=== PATIENT | male | born 1950 | race Caucasian/White ===

== ENCOUNTER → 2020-07-27 08:36 | Outpatient (BNVA) | payer BC, SELFPAY | PROVIDERS: PCP Internal Medicine; Referring Provider Internal Medicine; Visit Provider Internal Medicine Cardiovascular Disease | DX: I25.10 Atherosclerotic heart disease of native coronary artery without angina pectoris (principal); R06.02 Shortness of breath | CPT/HCPCS: 93005 ==

== ENCOUNTER → 2020-07-29 09:18 | Outpatient (REF) | payer MEDICARE, SELFPAY ==
--- NOTE | 2020-07-29 09:52 | CA_ITS ---
Transthoracic Echocardiogram Patient (Last, First, Middle): Justo Sue, Gender: Male Date of : 1950 Age: 69 Procedure Date: 07/29/2020 Procedure Type: Transthoracic Echocardiogram Location: OP Height: 180.34 cm Weight: 81.65 kg BSA: 2.02 m2 Heart Rate: bpm BP: 123 / 80 mmHg Clay Transporter: Referring MD: Meliton Durham MD Symptoms: R06.02 - Shortness of breath Study Quality: Technically Difficult ECG Rhythm: Sinus Conclusions: - Limited views-No parasternal or short-axis views. - Even with contrast use, difficult to assess wall motion. Grossly no major abnormality on available images. Suspect LVEF >55%. - There is mildly decreased right ventricular systolic function. - No obvious valvular pathology seen on this study. Findings Procedure Information The patient receives contrast. Left Ventricle Normal left ventricular cavity size. The left ventricular systolic function is normal. E/E prime ratio is <8, consistent with normal filling pressures. Evidence suggests grade I (mild) diastolic dysfunction. No parasternal or short-axis views. Even with contrast use, difficult to assess wall motion. Grossly no major abnormality on available images. Suspect LVEF >55%. Right Ventricle Normal right ventricular cavity size. There is mildly decreased right ventricular systolic function. (TAPSE 1.5cm) Atria Both atria are normal in size. Aortic Valve The aortic valve was not well visualized. There is no aortic valve stenosis. There is no aortic valve regurgitation. Mitral Valve The mitral valve appears normal. There is trace mitral valve regurgitation. There is no mitral valve stenosis. Pulmonic Valve The pulmonic valve was not well visualized. Tricuspid Valve There is trace tricuspid valve regurgitation. The pulmonary artery systolic pressure is normal. Great Vessels The aorta was not well visualized. Venous The inferior vena cava is normal in size and collapses greater than 50% with inspiration. Pericardium/Pleural There is no evidence of pericardial effusion. Prior Study Comparison No significant change compared to prior study dated: 07/04/2018. Recommendations, Care & Conclusions No obvious valvular pathology seen on this study. Measurements 2D Systolic Function EF 4C: 74.90 >55% EF 2C: 72.90 >55% EF BiP: 75.80 >55% Mitral Valve MV Pk E: 0.43 MV PK A: 0.54 MV Decel Time: 346.00 E/A: 0.80 E'Lateral: 8.59 E'Medial: 5.11 E/E' Med: 8.50 E/E' Lat: 5.00 Aortic Valve AoV Pk Esau: 1.02 AoV Mn Esau: 0.74 AoV VTI: 0.24 AoV Pk Grad: 4.00 Aov Mn Grad: 2.00 LVOT LVOT Pk Esau: 0.73 LVOT Mn Esau: 0.46 LVOT VTI: 0.13 LVOT Pk Grad: 2.00 LVOT Mn Grad: 1.00 Diastolic Function MV Pk E: 0.43 MV Pk A: 0.54 E/A: 0.80 E'Medial: 5.11 E/E' Med: 8.50 E' Laterial: 8.59 E/E' Lat: 5.00 Tricuspid Valve TR Pk Esau: 2.14 TR Pk Grad: 18.00 Great Vessels Aorta Ao Arch: 2.90 Updated in Other Vendor System with Status of Final Arnav Jameson MD electronically signed on 07/31/2020 11:28:14 AM with status of Final
== END ==
LOC: HO.CARD 09:18
PROVIDERS: PCP Internal Medicine; Visit Provider Internal Medicine Cardiovascular Disease
DX: R06.02 Shortness of breath (principal)
CPT/HCPCS: 93306; Q9957

== ENCOUNTER → 2020-08-10 08:03 | Outpatient (REF) | payer MEDICARE, SELFPAY ==
--- NOTE | ~2020-08-10 | NM_ITS ---
Exercise Myocardial perfusion study Indication: Shortness of breath with prior coronary artery disease to evaluate for myocardial ischemia Technique: The patient was brought in for an exercise perfusion study on 08/09/2020. Patient performed exercise as per Jasiel protocol and was injected 30 mCi of sestamibi was given intravenously one target HR was achieved. Images were obtained using the SPECT gamma camera interlaced with the gating device. Images were obtained in supine position. Resting perfusion study was performed on 08/12/2020. Patient was administered 30 mCi of sestamibi intravenously at rest. Images were then obtained in supine position. Images obtained with and without CT attenuation. Total DLP 91 mGy-cm. Images were processed with the software and compared side to side in short axis, horizontal long axis and vertical long axis views. Findings: The stress perfusion study showed nonattenuated images show mildly reduced uptake in the basal and mid inferior wall of the LV myocardium. Remainder of the LV myocardium normally perfused. Attenuation corrected images show normal uptake of radiotracer in all segments of LV myocardium. The gated study shows normal LV systolic function with calculated LVEF of 61%. LV cavity is normal in size. The gated study shows normal cyst colic wall thickening and contraction of all segments. There is no transient ischemic dilation. Resting study shows nontender images show mildly reduced uptake in the basal and mid inferior wall of the LV myocardium. Attenuation corrected images are suboptimal due to intense subdiaphragmatic uptake.. Gating at rest reveals normal systolic wall motion with ejection fraction at 59%. The findings are consistent with likely normal myocardial perfusion. NM/NM cardiolite stress test Impression: 1. Normal myocardial perfusion 2. Gated LVEF is 60% 3. Transient ischemic dilatation not present Stress EKG is negative for ischemia
--- NOTE | 2020-08-10 08:06 | CA_ITS ---
Acquisition Time: 2020-08-10 08:39:03 Total Exercise Time: 00:07:30 Test Indications: Dyspnea Medications: ASA METOPROLOL PANTOPRAZOLE ROSUVASTATIN FINASTERIDE Protocol: ANASTASIYA Max HR: 131 BPM 87% of Pred: 149 BPM Max BP: 152/074 mmHG Max Work Load: 9.3 METS Exercise stress test with exercise 7 min 30 sec of Anastasiya protocol, with mild sob, no chest discomfort, with isolated PVC, with normotensive response to exercise, without EKG changes meeting criteria for ischemia. Nuclear images pending. Test reviewed with Dr Durham. Note: During the exercise he was observed to have only mild shortness of breath. He described his breathing as gasping during the exercise. Referred By: Meliton Durham Overread By: JASPREET BYRNES
== END ==
LOC: HO.CARD 08:03
PROVIDERS: Visit Provider Internal Medicine Cardiovascular Disease
DX: I25.10 Atherosclerotic heart disease of native coronary artery without angina pectoris (principal); R06.02 Shortness of breath; Z95.1 Presence of aortocoronary bypass graft
CPT/HCPCS: 78452; 93017; A9500

== ENCOUNTER → 2020-09-08 08:47 | Outpatient (BNVA) | payer MEDICARE, SELFPAY | PROVIDERS: PCP Internal Medicine; Visit Provider Internal Medicine Cardiovascular Disease | DX: I25.10 Atherosclerotic heart disease of native coronary artery without angina pectoris (principal); R06.02 Shortness of breath | CPT/HCPCS: Q3014 ==

== ENCOUNTER 2021-06-16 11:24 | Outpatient (REF) | payer MEDICARE, SELFPAY ==
--- NOTE | ~2021-06-16 | XR_ITS ---
EXAMINATION: CHEST AND LEFT RIBS. CLINICAL INFORMATION: Left-sided chest wall pain. COMPARISON: None TECHNIQUE: Chest 2 views and left RIBS 4 views. FINDINGS: CHEST: The lungs are expanded with mild blunting of right CP angle from pleural thickening or effusion. Heart size and pulmonary vascularity is normal. There are median sternotomy sutures images and maurice from previous intervention. No gross bony abnormality seen. LEFT RIBS: Multiple views of left ribs reveal no visible fracture or bony abnormality. The soft tissues are normal. XR/XR ribs LT 2V IMPRESSION: Unremarkable chest exam. No visible acute fracture involving left ribs.
--- NOTE | ~2021-06-16 | XR_ITS ---
EXAMINATION: CHEST AND LEFT RIBS. CLINICAL INFORMATION: Left-sided chest wall pain. COMPARISON: None TECHNIQUE: Chest 2 views and left RIBS 4 views. FINDINGS: CHEST: The lungs are expanded with mild blunting of right CP angle from pleural thickening or effusion. Heart size and pulmonary vascularity is normal. There are median sternotomy sutures images and maurice from previous intervention. No gross bony abnormality seen. LEFT RIBS: Multiple views of left ribs reveal no visible fracture or bony abnormality. The soft tissues are normal. XR/XR chest 2V IMPRESSION: Unremarkable chest exam. No visible acute fracture involving left ribs.
[2021-06-16 11:57] LABS: MANUAL DIFF FLAG NO
[2021-06-16 12:41] LABS: Basophils Percent Auto 0.3 % (0-2); Eosinophils Absolute Auto 0.3 X10*3/uL (0.0-0.4); Hematocrit 50.5 % (42.0-52.0); Hemoglobin 16.4 g/dl (14.0-18.0); Imm Gran Abs Auto 0.02 X10*3/uL (0.00-0.03); Imm Gran Pct Auto 0.3 % (0.0-0.4); Lymphocytes Absolute Auto 1.8 X10*3/uL (1.2-4.9); Lymphocytes Percent Auto 26.5 % (20-40); Mean Corpuscular HGB Conc 32.5 g/dl (31.0-36.0); Mean Corpuscular Hemoglobin 30.7 pg (27.0-33.0); Mean Corpuscular Volume 94.4 fL (80.0-98.0); Mean Platelet Volume 10.5 fL (9.4-12.4); Monocytes Absolute Auto 0.7 X10*3/uL (0.1-1.2); Monocytes Percent Auto 11.1 % (2-11); Neutrophils Absolute Auto 3.9 x10*3/uL (2.0-8.3); Neutrophils Percent Auto 57.8 % (45-73); Platelet Count 233 X10*3/uL (160-400); Red Blood Count 5.35 X10*6/uL (4.60-5.80); Red Cell Distribution Width 12.7 % (11.0-16.0); White Blood Count 6.7 X10*3/uL (4.8-10.8)
[2021-06-16 13:05] LABS: Anion Gap 15 (12-20); Blood Urea Nitrogen 12 mg/dL (9-16); Calcium 9.7 mg/dL (8.4-10.2); Carbon Dioxide 20 mmol/L (22-29); Chloride 109 mmol/L (96-108); Estimated Glomerular Filt Rate > 60; Glucose Random 98 mg/dL (60-115); Potassium 4.3 mmol/L (3.3-5.1); Sodium 140 mmol/L (135-145)
== END 2021-06-16 11:25 | disposition home or self-care (01) ==
LOC: HO.LAB 11:24
PROVIDERS: PCP Internal Medicine; Visit Provider Internal Medicine
DX: R07.89 Other chest pain (principal); I25.10 Atherosclerotic heart disease of native coronary artery without angina pectoris
CPT/HCPCS: 36415; 71046; 71100; 80048; 85025

== ENCOUNTER 2021-06-29 08:17 | Outpatient (REF) | payer MEDICARE, SELFPAY ==
--- NOTE | ~2021-06-29 | CT_ITS ---
EXAMINATION: CT CHEST WITH CONTRAST CLINICAL INFORMATION: Pleural effusion COMPARISON: Previous chest and left rib x-rays 06/16/2021 TECHNIQUE: Multidetector volumetric CT imaging of the chest was obtained after the administration of 65 mL of Omnipaque 350 intravenous contrast without immediate adverse reactions. Axial MIP volume rendering provided. Sagittal and coronal reformatted images were obtained. This CT examination was performed using dose optimization techniques as appropriate, variously including the following: *Automated exposure control *Adjustment of mA and/or kV according to patient size (this includes techniques or standardized protocols for targeted exams where dose is matched to indication/reason for exam; i.e. extremities or head) *Use of iterative reconstruction technique DLP: 165 mGy-cm FINDINGS: LUNGS: There is evidence of mild centrilobular emphysema. There is increased peripheral reticulation seen at the lung bases and traction bronchiolectasis questionable for mild interstitial disease. There is scarring or subsegmental atelectasis in the peripheral lateral right lower lobe. No pulmonary nodule. No endobronchial or endotracheal lesion. MEDIASTINUM: There are post-CABG changes. The heart size is normal. There is no pericardial effusion. The thoracic aorta is normal in caliber. The thyroid gland is normal. There are no enlarged hilar or mediastinal lymph nodes. PLEURA: There is elevation of the right hemidiaphragm. No pleural effusion or appreciable pleural thickening is seen. AXILLA: No lymphadenopathy. UPPER ABDOMEN: The liver is low in attenuation suggestive of fatty infiltration. OSSEOUS STRUCTURES: Postsurgical changes of the right shoulder. Degenerative changes of the spine. CT/CT chest w con IMPRESSION: Mild emphysema and question mild interstitial lung disease at the lung bases. Elevated right hemidiaphragm. No pleural effusions. Post-CABG changes. Fleischner guidelines were followed.
[2021-06-29] MEDS: iohexoL 350 MG/ML 100 ML INFUS..BTL IV (09:32)
== END 2021-06-29 08:18 | disposition home or self-care (01) ==
LOC: HO.CT 08:17
PROVIDERS: PCP Internal Medicine; Visit Provider Internal Medicine
DX: J90 Pleural effusion, not elsewhere classified (principal)
CPT/HCPCS: 71260; Q9967

== ENCOUNTER 2021-07-14 08:19 | Outpatient (REF) | payer MEDICARE, SELFPAY ==
--- NOTE | ~2021-07-14 | CT_ITS ---
EXAMINATION: CT ABDOMEN AND PELVIS WITHOUT CONTRAST CLINICAL INFORMATION: Left upper quadrant pain COMPARISON: Previous chest CT June 2021 and chest and left rib x-rays June 2021 TECHNIQUE: Multidetector volumetric images were obtained from the superior aspect of the liver through the pubic symphysis following oral contrast. Sagittal and coronal reformatted images were obtained on the technologist's workstation. Oral contrast: Yes This CT examination was performed using dose optimization techniques as appropriate, variously including the following: *Automated exposure control *Adjustment of mA and/or kV according to patient size (this includes techniques or standardized protocols for targeted exams where dose is matched to indication/reason for exam; i.e. extremities or head) *Use of iterative reconstruction technique DLP: 624 mGy-cm FINDINGS: LUNG BASES: There are increased peripheral or subpleural linear markings in the lateral right lower lobe. This is similar to June 2021 CT scan. This is similar to recent chest CT June 2021. The lung bases are otherwise unremarkable. LIVER, GALLBLADDER, AND BILIARY TREE: The liver is normal in size, shape, and attenuation. No focal hepatic lesion or biliary ductal dilatation is present. The gallbladder is unremarkable with no evidence of radiopaque gallstones, gallbladder wall thickening, or obvious pericholecystic inflammatory changes. PANCREAS: Unremarkable. SPLEEN: Unremarkable. ADRENAL GLANDS: Unremarkable. KIDNEYS AND URETERS: The kidneys are normal in size, shape, and attenuation. No hydronephrosis, hydroureter, or calculi seen. No perinephric stranding. BLADDER: Not optimally distended. The prostate gland is slightly enlarged and protrudes into the base of the bladder. GASTROINTESTINAL TRACT: There is diverticulosis. Small and large bowel is otherwise unremarkable. The appendix is not seen. The stomach is unremarkable. ABDOMINAL WALL: No significant hernia is appreciated. LYMPH NODES: Normal. VASCULAR: Unremarkable. PELVIC VISCERA: The prostate gland is slightly enlarged measuring 3.6 x 4.6 cm in AP and transverse dimension. OSSEOUS STRUCTURES: There are degenerative changes of the spine. There is a orthopedic hardware and single screw across the left sacroiliac joint. CT/CT abdomen pelvis w con IMPRESSION: Diverticulosis. No evidence of diverticulitis. Slightly enlarged prostate gland that protrudes into the base of the bladder. Fleischner guidelines were followed.
[2021-07-14] MEDS: Barium Sulfate Oral (Vanilla) 450 ML ORAL.SUSP 900 ML PO (10:57)
== END 2021-07-14 08:20 | disposition home or self-care (01) ==
LOC: HO.CT 08:19
PROVIDERS: PCP Internal Medicine; Visit Provider Internal Medicine
DX: R10.12 Left upper quadrant pain (principal)
CPT/HCPCS: 74177

== ENCOUNTER → 2021-09-06 09:00 | Outpatient (BNVA) | payer MEDICARE, SELFPAY | PROVIDERS: PCP Internal Medicine; Referring Provider Internal Medicine; Visit Provider Internal Medicine Cardiovascular Disease | DX: I25.10 Atherosclerotic heart disease of native coronary artery without angina pectoris (principal); Z79.82 Long term (current) use of aspirin; Z79.899 Other long term (current) drug therapy | CPT/HCPCS: 93005; 99212 ==

== ENCOUNTER → 2021-09-22 07:39 | Outpatient (REF) | payer MEDICARE, SELFPAY ==
--- NOTE | ~2021-09-22 | NM_ITS ---
Exercise Myocardial perfusion study Indication: Chest pain with prior coronary artery disease to evaluate for myocardial ischemia Technique: The patient was brought in for an exercise perfusion study on 09/22/2021. Patient performed exercise as per Jasiel protocol and was injected 30 mCi of sestamibi was given intravenously one target HR was achieved. Images were obtained using the SPECT gamma camera interlaced with the gating device. Images were obtained in supine position. Resting perfusion study was performed on 09/23/2021. Patient was administered 30 mCi of sestamibi intravenously at rest. Images were then obtained in supine position. Images obtained with and without CT attenuation. Total DLP 84 mGy-cm. Images were processed with the software and compared side to side in short axis, horizontal long axis and vertical long axis views. Findings: The stress perfusion study showed non attenuated images show mildly to moderately reduced uptake in the apical and mid inferior and adjacent inferoseptal wall of the LV myocardium. Remainder of the LV myocardium is normally perfused. Attenuation corrected images show normal uptake of radiotracer in all segments of LV myocardium. The gated study shows normal LV systolic function with calculated LVEF of 65%. LV cavity is normal in size. The gated study shows normal systolic wall thickening and contraction of all segments. There is no transient ischemic dilation. Resting study shows no change in perfusion pattern compared to stress perfusion study. Gating at rest reveals normal systolic wall motion with ejection fraction at 74%. The findings are consistent with normal myocardial perfusion. NM/NM cardiolite stress test Impression: 1. Normal myocardial perfusion 2. Gated LVEF is 65% 3. Transient ischemic dilatation not present Stress EKG is equivocal for ischemia
--- NOTE | 2021-09-22 07:42 | CA_ITS ---
Acquisition Time: 2021-09-22 08:12:54 Total Exercise Time: 00:07:45 Test Indications: Dyspnea AFIB Medications: ASA METOPROLOL FINASTERIDE PANTOPRAZOLE ROSUVASTATIN ZOLPIDIEM Protocol: ANASTASIYA Max HR: 133 BPM 89% of Pred: 148 BPM Max BP: 160/070 mmHG Max Work Load: 9.7 METS Exercise stress test with exercise 7 min 45 sec of Anastasiya protocol, achieving 87% MPHR, with moderate shortness of breath, no chest discomfort, with isolated PVC during exercise then runs of ventricular bigeminy and trigeminy in recovery, with normotensive response to exercise, with baseline EKG showing T wave inversion V1-V4 then with no significant changes noted with exercise. In recovery his breathing normalized. Nuclear images pending. Test reviewed with Dr Hill. Referred By: Meliton Durham Overread By: JASPREET BYRNES
== END ==
LOC: HO.CARD 07:39
PROVIDERS: Visit Provider Internal Medicine Cardiovascular Disease
DX: R07.9 Chest pain, unspecified (principal); I25.10 Atherosclerotic heart disease of native coronary artery without angina pectoris
CPT/HCPCS: 78452; 93017; A9500; J0280; J2785

== ENCOUNTER → 2022-09-06 08:31 | Outpatient (BNVA) | payer MEDICARE, SELFPAY | PROVIDERS: Visit Provider Internal Medicine Cardiovascular Disease | DX: I25.10 Atherosclerotic heart disease of native coronary artery without angina pectoris (principal); E78.5 Hyperlipidemia, unspecified | CPT/HCPCS: 93005; 99212 ==

== ENCOUNTER 2023-09-10 08:04 | Outpatient (AMB) | payer OTHER, SELFPAY ==
--- NOTE | 2023-09-10 08:23 | MHC.OFFVIS ---
Vital Signs 09/10/23 08:26 Height 5 ft 11 in Weight 168 lb 13.985 oz BMI 23.6 BP 110/68 Blood Pressure Location Lt brachial Position Sitting Pulse 55 Intake Visit Reasons: 1 yr f/up Intake Note: 1 year f/u. Pt states he is feeling okay. 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 Required: No Accompanied by: Self / Same As Patient Allergies ezetimibe [Zetia] Allergy (Unknown, Verified 09/06/21 09:22) stomach pain Fovnzwv-SAD-SsU Reductase Inhibitor [[id number] REDUCTASE INHIBITOR] Adverse Reaction (Intermediate, Verified 09/06/21 09:22) GI PAIN finasteride Adverse Reaction (Unknown, Verified 09/06/21 09:22) decreased desire Medication List - Last Reconciled 09/10/23 by Meliton Durham MD aspirin (Adult Low Dose Aspirin) 81 mg PO DAILY yulwvvnnk-tnbnuenl-tyohxixvfu 25-100-200 mg 1 tab PO TID finasteride 5 mg PO QAM glycopyrrolate 1 mg PO BID-TID PRN melatonin 3 mg PO BEDTIME PRN metoprolol succinate ER 50 mg PO DAILY oxycodone-acetaminophen 5-325 mg 1 tab PO Q8H PRN pantoprazole 40 mg PO DAILY paroxetine HCl 10 mg PO DAILY rosuvastatin 40 mg PO DAILY HPI Comments Details: Aldo comes for follow-up. He denies any cardiac symptoms. Main issue currently is balance related to his Parkinson's disease. He denies any exertional chest pain or shortness of breath with current activity level. Takes all his medications. Denies any prolonged palpitation irregular heartbeat. [facility] had blood work done through the office. Will follow-up with that. Denies any heart failure symptoms. Denies any lightheadedness, syncope. [facility] Medical History Hyperlipidemia Atrial fibrillation CAD (coronary artery disease) Surgical History S/P CABG x 3 Social History Alcohol intake: never Patient Tobacco Use Status: Never used Tobacco Review of Systems Const Denies chills, Denies fatigue, Denies fever(s), Denies weight gain and Denies weight loss Card Denies chest pain, Denies leg edema, Denies lightheadedness, Denies palpitations, Denies dyspnea on exertion and Denies orthopnea Resp Denies cough and Denies dyspnea on exertion GI Reports melena, Denies hematochezia and Denies change in stool character Musc Denies muscle weakness and Denies radiating pain into limb Endo Denies fatigue and Denies palpitations Physical Exam Vital Signs: Last Vital Signs Pulse 55 09/10/23 08:26 BP 110/68 09/10/23 08:26 BMI result Body Mass Index 23.6 Repeat blood pressure is 124/78 Const General: cooperative, comfortable, no acute distress, alert and awake Nutritional Appearance: average body habitus Orientation/consciousness: patient oriented x3 Limitations: no limitations Neck Neck: Yes trachea midline, Yes supple and Yes no JVD Resp Effort & Inspection: normal respiratory effort Auscultation: diminished lung sounds on the right (Base) Cardio Jugular venous distension: no JVD Palpation: normal PMI Rate: regular rate Rhythm: regular rhythm Heart sounds: S1 normal heart sound present and S2 normal heart sound present GI Auscultation: normal bowel sounds Skin General skin exam: no rashes or lesions noted Neuro General: patient oriented x3 and no focal motor deficits Extrem General: Yes no clubbing, cyanosis or edema Psych Appearance: grossly normal Office Procedures EKG Details: EKG shows normal sinus rhythm with nonspecific diffuse ST T wave abnormalities, unchanged from before [id number], Complete Assessment & Plan Assessment & Plan (1) CAD (coronary artery disease): Code(s): I25.10 - Atherosclerotic heart disease of [place] coronary artery without angina pectoris Category: Medical Plan: CAD with remote coronary artery bypass grafting with myocardial perfusion imaging 2 years ago within normal limits. No current symptoms that are concerning for myocardial ischemia. He is good functional quality of life. Continue lifelong aspirin therapy. Blood pressure is currently well optimized. Continue metoprolol therapy. Continue high-intensity statin therapy. Target goal LDL closer to 60 mg/dL. Will obtain blood work from your office. Encouraged to continue to participate in physical activity as tolerated. Will follow up in the clinic in 1 year's time, sooner p.r.n.. Thank you for allowing me to partake in his care Medications: New nitroglycerin do not exceed 3 doses per episode 0.4 mg sublingual Q5M PRN 20 tabs 1RF chest pain Refilled rosuvastatin PCP Brannon Sommer MD at [facility] 40 mg PO DAILY 90 tabs 3RF metoprolol succinate ER PCP Brannon Sommer MD at [facility] 50 mg PO DAILY 90 tabs 3RF Coding Level of Care Code Est Pt Level 3 (71494) Diagnoses CAD (coronary artery disease) I25.10 CPT Codes EKG - CPT: 80999-[id number], Complete ([id number])
[2023-09-10 08:26] VITALS: BP 110/68; PULSE 55; BMI 23.6
== END 2023-09-10 08:48 | disposition home or self-care (01) ==
PROVIDERS: PCP Internal Medicine; Visit Provider Internal Medicine Cardiovascular Disease
DX: I25.10 Atherosclerotic heart disease of native coronary artery without angina pectoris (principal)
CPT/HCPCS: 93010; 99213

== ENCOUNTER → 2023-09-10 08:04 | Outpatient (BNVA) | payer MEDICARE, SELFPAY | PROVIDERS: PCP Internal Medicine; Visit Provider Internal Medicine Cardiovascular Disease | DX: I25.10 Atherosclerotic heart disease of native coronary artery without angina pectoris (principal); Z79.82 Long term (current) use of aspirin; Z79.899 Other long term (current) drug therapy | CPT/HCPCS: 93005; 99212 ==

== ENCOUNTER 2024-10-21 12:18 | Outpatient (AMB) | payer OTHER, MEDICARE, SELFPAY ==
--- OUTSIDE RECORDS SUMMARY | 2024-06-13 04:00 | XMS_ITS | Encounter Summary ---
Author Name [facility] [place] Organization Department of [facility] Affairs ([place]) Address [address] [place] [address] Care Team Providers Care Cadd Instructor Name Role Phone BRANNON SOMMER Primary Care Provider Unavailabl e Insurance Providers: All historical and current Section Date Range: From patient's date of to the date document was created. This section includes the names of all active insurance providers for the patient. Insurance Provider Type of Coverage Plan Name Start of Policy Coverage End of Policy Coverage Group Number Member ID Insurance Provider's Telephone Number Policy Lin's Name Patient's Relationship to Policy Lin [facility]EN [facility] ([facility]) MEDICARE ADVANTAGE [facility] ([facility]) Aug 03, 2010 [id number] ELLEN WYNN JR PATIENT BCBS OF [id number] ([facility]) MEDICARE ADVANTAGE [facility] ([facility]) Aug 03, 2010 [id number] ELLEN WYNN JR PATIENT MEDICARE ([facility]) MEDICARE () PART B July 03, 2010 PART B [id number] ELLEN WYNN JR PATIENT Selected Encounter This section includes the information on record at [place] for the Encounter. Date/Time Encounter Type Encounter Description Reason Provider Source Jun 13, 2024 08:00 AM OFFICE O/P EST LOW 20 MIN PRIMARY CARE/MEDICINE ICD-10-CM E78.00 Pure hypercholesterole lawson, unspecified BRANNON SOMMER IHE Encounter Template Text not used by [place] Assessments - Encounter Diagnoses This section includes the primary and secondary diagnoses documented for the Encounter. Date/Time Primary/Secondary Diagnosis Diagnosis Name Provider Source Jun 13, 2024 08:35 AM PRIMARY Pure hypercholesterolem ia, unspecified BRANNON SOMMER [facility] Jun 13, 2024 08:35 AM SECONDARY Encounter for immunization BAKARI SMALLS [facility] Plan of Treatment: Future Appointments (+ 6 months) and Future Tests (+/- 45 days) The Plan of Treatment section includes future care activities for the patient [facility] [place] [facility] This section includes future appointments and future orders which are active, pending or scheduled. Future Appointments This section includes appointments that were scheduled to occur 6 months from the date of the Encounter, up to a maximum of 20 appointments. The data comes from all [place] treatment facilities. Appointment Date/Time Appointment Type Appointme nt Facility Name Jul 02, 2024 10:00 AM AMBULATORY - NONE [facility] Sep 04, 2024 09:30 AM AMBUL[facility] MEDICINE [facility] Nov 05, 2024 08:30 AM [facility] Dec 09, 2024 08:30 AM AMBULATORY - MEDICINE [facility] Active, Pending, and Scheduled Orders This section includes a listing of several types of active, pending, and scheduled orders, including clinic medications orders, diagnostic test orders, procedure orders and consult orders; where the start date of the order is 45 days before the date of the Encounter or 45 days after the date of theEncounter. The data comes from all [place] treatment facilities. Test Date/Time Test Type Test Details Facility Name Jun 23, 2024 04:16 PM Consult Order [facility] Cons Sample Box Maker's Choice [facility] Lab Results: +/- 30 days of the encounter This section includes the Chemistry and Hematology Lab Results on record with [place] for the patient. Radiology Reports and Pathology Reports are provided separately, in subsequent sections. Lab Results This section contains the Chemistry/Hematology Results that were resulted 30 days before or 30 daysafter the date of the Encounter. Date/Time Source Result Type Result - Unit Interpretation Reference Range Specimen Type Comment Jun 09, 2024 08:02 AM [facility] LIPID PANEL FASTING SERUM Specimen Type: SERUM No comment entered. Ordering Provider: BRANONN SOMMER Report Released Date/Time: May 30, 2024 07:44 PM Reporting Lab: [facility] [address] [facility] [address] Performing Lab: [address] [address] CHOLESTEROL 143 mg/dL TRIGLYCERIDE 197 mg/dL H 0-150 LDL calculated 57 mg/dL 0-129 CHOL/HDL 3.0 HDL CHOLESTEROL 47 mg/dL 40-60 Jun 09, 2024 08:02 AM [facility] LIVER FUNCTION SERUM Specimen Type: SERUM No comment entered. Ordering Provider: BRANNON SOMMER Report Released Date/Time: May 30, 2024 07:44 PM Reporting Lab: [address] [address] Performing Lab: [address] [address] PROTEIN,TOTAL 7.0 g/dL 6.0-8.3 ALBUMIN 4.0 g/dL 3.5-5.0 ALKALINE PHOSPHATASE 63 U/L 40-150 AST 19 U/L 5-34 ALT 13 U/L BILIRUBIN, TOTAL 0.7 mg/dL 0.2-1.2 Jun 09, 2024 08:02 AM [facility] BASIC METABOLIC PANEL (fasting) SERUM Specime n Type: SERUM No comment entered. Ordering Provider: BRANNON SOMMER Report Released Date/Time: May 30, 2024 07:44 PM Reporting Lab: [address] [address] Performing Lab: [address] [address] UREA NITROGEN 16 mg/dL 7-25 GLUCOSE 99 mg/dL 65-100 SODIUM 143 mmol/L 135-145 POTASSIUM 4.3 mmol/L 3.5-5.0 CHLORIDE 107 mmol/L 100-110 CO2 23 meq/L 20-30 CALCIUM 9.4 mg/dL 8.5-10.2 CREATININE, Serum 0.98 mg/dL 0.50-1.40 eGFR(CKD-EPI 2020) 80 mL/min >60 Jun 09, 2024 08:02 AM [facility] TSH SERUM Specimen Type: SERUM No comment entered. Ordering Provider: BRANNON SOMMER Report Released Date/Time: May 30, 2024 07:44 PM Reporting Lab: [facility] [address] [address] Performing Lab: [facility] [address] [facility] [address] TSH 3.58 u[IU]/mL 0.35-5.00 Jun 09, 2024 08:02 AM [facility] CBC AND DIFF (AUTO) BLOOD Specimen Type: BLOO D No comment entered. Ordering Provider: BRANNON SOMMER Report Released Date/Time: May 30, 2024 07:44 PM Reporting Lab: [facility] [address] [facility] [address] Performing Lab: [facility] [address] [facility] [address] WBC 7.72 10*3/uL 4.50-11.00 RBC 5.08 10*6/uL 4.23-5.66 HGB 15.8 g/dL 12.8-17 HCT 46.7 39.2-50.4 MCV 91.9 fL 82-99 MCHC 33.8 g/dL 30.8-35.1 PLT 241 10*3/uL 140-360 MPV 10.5 fL 9.2-12.4 RDW-CV 12.2 12.0-16.0 MONO, ABS 0.67 10*3/uL 0.30-1.10 MCH 31.1 pg 26.2-32.6 NEUT % 48.6 43.7-75.8 LYMPH % 35.6 14.0-42.3 MONO % 8.7 5.1-13.7 EOS % 6.2 0.4-6.8 BASO % 0.5 0.1-2.0 NEUT, ABS 3.75 10*3/uL 2.20-7.60 LYMPH, ABS 2.75 10*3/uL 1.00-3.20 EOS, ABS 0.48 10*3/uL H 0.03-0.44 BASO, ABS 0.04 10*3/uL 0.01-0.13 IMMATURE GRAN % 0.4 0.0-0.7 IMMATURE GRAN, ABS 0.03 10*3/uL 0.00-0.0 6 NRBC % 0.0 0.0-0.0 NRBC, ABS 0.00 10*3/uL 0.00-0.00 Jun 09, 2024 08:02 AM [facility] URINALYSIS CLEAN CATCH URINE Specimen Type: U RINE Comment: If Glucose = >500 and Ketones are positive, please alert the Physician. Ordering Provider: BRANNON SOMMER Report Released Date/Time: May 30, 2024 07:44 PM Reporting Lab: [address] [address] Performing Lab: [address] [address] UA COLOR Yellow Yellow UA APPEARANCE Clear Clear UA GLUCOSE Normal mg/dL Negative UA KETONES TRACE mg/dL Negative UA BLOOD NEGATIVE mg/dL Negative UA PROTEIN 20 mg/dL Negative UA NITRITE NEGATIVE mg/dL Negative UA BILIRUBIN NEGATIVE mg/dL Negative UA SPECIFIC GRAVITY 1.030 H 1.016-1.022 UA pH 6.0 5.0-9.0 UA UROBILINOGEN Normal mg/dL <2.0 UA LEUKOCYTE NEGATIVE Negative Vital Signs: All taken on the encounter date This section contains inpatient and outpatient Vital Signs collected on the date of the Encounter. Date/Time Temperature Pulse Blood Pressure Respiratory Rate SP02 Pain Height Weight Body Mass Index Source Jun 13, 2024 07:58 AM 97.1 69 118/70 16 94 1 71 171.5 24 [facility] Immunizations: All administered on the encounter date This section contains immunizations associated to the Encounter. Immunization Series Date Issued Administered By Site Reaction Lot Number [id number] Code Drug Garden Equipment Mechanic Comment(s) Source RSV, BIVALENT, PROTEIN SUBUNIT RSVPREF, DILUENT RECONSTITUTED , 0.5 ML, PF Jun 13, 2024 MES[place],BAKARI N M RIGHT DELTO ID [id number] [employer] Completed Series, ADMINISTERE D AT [place], sterile water diluent component [id number] [place] [facility] [facility] Social History: Smoking Status (Most current) and Tobacco Use (All prior to encounter date) This section includes the most current, and the historical, smoking and tobacco- related health factors from the [place] facility where the Encounter took place. Current Smoking Status This section includes the most current smoking, or tobacco-related health factor, from the [place] facility where the Encounter took place. Date/Time Current Smoking Status Comment Facil ity Jun 13, 2024 08:00 AM VA-TOBACCO USE FOR BENNETT CIGARETTES [place] [facility] [place] [facility] Tobacco Use History This section includes a history of the smoking, or tobacco-related health factors, that were collected on or before the date of the Encounter. The data comes from the [place] facility where the Encounter took place. Date/Time Smoking Status/Tobac co Use Comment Facility Jun 13, 2024 08:00 AM VA-TOBACCO USE FORMER CIGARETTES [facility] [place] [facility] Mar 06, 2023 01:00 PM VA-TOBACCO FORMER USER [facility] [place] [facility] Mar 06, 2023 01:00 PM VA-TOBACCO QUIT 15 YRS OR MORE [facility] [place] [facility] July 21, 2021 08:00 AM VA-TOBACCO FORMER USER [facility] [place] [facility] July 21, 2021 08:00 AM VA-TOBACCO QUIT 15 YRS OR MORE [place] [facility] [place] [facility] July 19, 2020 09:30 AM VA-TOBACCO FORMER USER [facility] [place] [facility] July 19, 2020 09:30 AM VA-TOBACCO QUIT 15 YRS OR MORE [facility] [place] [facility] May 19, 2019 09:59 AM VA-TOBACCO FORMER USER [facility] [place] [facility] May 19, 2019 09:59 AM VA-TOBACCO QUIT 15 YRS OR MORE [facility] [place] [facility] July 23, 2017 09:58 AM LIFETIME NON-TOBACCO USER [facility] [place] [facility] Jun 22, 2016 09:16 AM LIFETIME NON-TOBACCO USER [facility] [place] [facility] May 13, 2015 02:11 PM LIFETIME NON-TOBACCO USER [facility] Nov 13, 2005 02:22 PM QUIT TOBACCO USE > 7 YEARS AGO QUIT 20 YEARS AGO [facility] Encounter Notes: All associated encounter notes This section contains the clinical notes associated to the Encounter. Date/Time Encounter Note(s) Provider Source Jun 13, 2024 08:31 AM PHYSICIAN NOTE: LOCAL TITLE: MD NOTE STANDARD TITLE: PHYSICIAN NOTE DATE OF NOTE: JUN 13, 2024@08:31 ENTRY DATE: JUN 13, 2024@08:31:09 AUTHOR: BRANNON SOMMER EXP COSIGNER: URGENCY: STATUS: COMPLETED Patient Name: ELLEN WYNN BHAVYA MCGRAW VITALS: Patient temperature: 97.1 F [36.2 C] (06/13/2024 07:58) Blood pressure: 118/70 (06/13/2024 07:58) Patient height: 71 in [180.3 cm] (06/13/2024 07:58) Patient weight: 171.5 lb [77.79 kg] (06/13/2024 07:58) Patient BMI: BMI: 24.0 Patient pulse: 69 (06/13/2024 07:58) Patient respiration: 16 (06/13/2024 07:58) Patient Pulse Oximetry: 94% (06/13/2024 07:58) Pain Ratin (06/13/2024 07:58) Active [facility] Medications: Active Outpatient Medications (including Supplies): Active Outpatient Medications Status 1) NITROGLYCERIN 0.4MG SL TAB DISSOLVE ONE TABLET UNDER THE ACTIVE TONGUE EVERY 5 MINUTES NEEDED IF NO RELIEF AFTER 3 DOSES, CALL 911 OR GO TO NEAREST EMERGENCY ROOM Indication: FOR ACUTE CHEST PAIN 2) SODIUM FLUORIDE 1.1% TOOTHPASTE BRUSH SMALL AMOUNT TO TEETH ACTIVE TWICE DAILY Indication: FOR TOOTH DECAY PREVENTION Pending Outpatient Medications Status 1) ASPIRIN 81MG EC TAB TAKE ONE TABLET BY MOUTH ONCE DAILY TO PENDING PREVENT STROKE/HEART ATTACK Indication: FOR MYOCARDIAL REINFARCTION PREVENTION 2) CARBIDOPA 25/LEVODOPA 100MG TAB TAKE 1 TABLET BY MOUTH THREE PENDING TIMES A DAY Indication: FOR PARKINSON SYMPTOMS 3) GLYCOPYRROLATE 1MG TAB TAKE ONE TABLET BY MOUTH AT BEDTIME PENDING TO DECREASE SALIVA Indication: FOR INCREASED PRODUCTION OF SALIVA 4) MELATONIN 3MG CAP/TAB TAKE THREE CAPSULE/TABLET BY MOUTH AT PENDING BEDTIME Indication: FOR INSOMNIA 5) METOPROLOL SUCCINATE 50MG SA TAB TAKE ONE TABLET BY MOUTH AT PENDING BEDTIME FOR BLOOD PRESSURE/HEART Indication: TO PREVENT ANGINAL CHEST PAIN 6) NITROGLYCERIN 0.4MG SL TAB DISSOLVE ONE TABLET UNDER THE PENDING TONGUE EVERY 5 MINUTES NEEDED IF NO RELIEF AFTER 3 DOSES, CALL 911 OR GO TO NEAREST EMERGENCY ROOM Indication: FOR ACUTE CHEST PAIN 7) NUTRITION SUPL ENSURE PLUS/VEL LIQUID DRINK 1 CAN BY MOUTH PENDING THREE TIMES A DAY Indication: FOR NUTRITIONAL SUPPLEMENTATION 8) PANTOPRAZOLE NA 40MG EC TAB TAKE ONE TABLET BY MOUTH EVERY PENDING MORNING 30 MINUTES BEFORE BREAKFAST Indication: FOR EXCESSIVE PRODUCTION OF STOMACH ACID 9) PAROXETINE HCL 20MG TAB TAKE ONE-HALF TABLET BY MOUTH ONCE PENDING DAILY Indication: ANXIETY 10) ROSUVASTATIN CA 40MG TAB TAKE ONE TABLET BY MOUTH AT BEDTIME PENDING FOR CHOLESTEROL Indication: FOR HIGH CHOLESTEROL 12 Total Medications Remote Medications: No Active 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 He feels well today with no complaints. he takes all medication regularly. He stays active with activities. He stays at a good weight Review of systems No chest pain or dyspnea No abdominal pain no trouble urinating No fever or chills No cough Physical examination well-developed well-nourished male no acute distress Coronary no murmur Lungs clear No edema Color, Urine (AX 4280): Yellow Appearance, Urine (AX 4280): Clear Glucose, Urine (AX 4280): Normal Ketones, Urine (AX 4280): TRACE Blood, Urine (AX 4280): NEGATIVE Protein, Urine (AX 4280): 20 Nitrite, Urine (AX 4280): NEGATIVE Bilirubin, Urine (AX 4280): NEGATIVE Specific [place], (AX 4280): 1.030 H pH, Urine (UJ4325): 6.0 Urobilinogen, Urine (AX 4280): Normal Leukocyte Esterase, (AX 4280): NEGATIVE TSH (Access): 3.58 GLUCOSE: 99 UREA NITROGEN: 16 SODIUM: 143 POTASSIUM: 4.3 CHLORIDE: 107 CO2: 23 CALCIUM: 9.4 CHOLESTEROL: 143 PROTEIN,TOTAL: 7.0 ALBUMIN: 4.0 ALKALINE PHOSPHATASE: 63 SGOT: 19 SGPT: 13 TRIGLYCERIDE: 197 H LDL CHOL: 57 CHOL/HDL RATIO: 3.0 HDL: 47 BILIRUBIN,TOT.: 0.7 CREATININE-EGFR: 0.98 eGFR CKD-EPI 2020: 80 WBC: 7.72 RBC: 5.08 HGB: 15.8 HCT: 46.7 MCV: 91.9 MCHC: 33.8 RDW: 12.2 PLT: 241 MPV: 10.5 MCH: 31.1 Neut %: 48.6 Lymph %: 35.6 [place] %: 8.7 Eos %: 6.2 Baso %: 0.5 Neut, Abs: 3.75 Lymph, Abs: 2.75 [place], Abs: 0.67 Eos, Abs: 0.48 H Baso, Abs: 0.04 Immature Granulocytes %: 0.4 Immature Granulocytes, Abs: 0.03 NRBC%: 0.0 NRBC#: 0.00 I discussed above test results with patient Assessment and plan: 1. Hypercholesterolemia: LDL is satisfactory Plan continue rosuvastatin Follow-up 6 months clinic visit and lab Medication Reconciliation: Outpatient: Has the patient been taking medications as documented in the EMLR? YES: The patient has been taking medications as documented in the EMLR. Essential Medication List for Review used to complete this medication reconciliation. INCLUDED IN THIS LIST: Alphabetical list of active outpatient prescriptions dispensed from this [place] (local) and dispensed from another [place] or [place] facility (remote) as well as inpatient orders (local, pending and active), local clinic medications, locally documented non-VA medications, and local prescriptions that have or been discontinued in the past 90 days. - All changes in medications, including all non-VA/Herbal/OTC medications were entered into CPRS. - If there were any medications the patient should no longer take, they were discontinued. - The patient/caregiver was instructed to update this list, discard old lists, and take this list to the next appointment, whether with a VA or non-VA provider. /alexandro/ Brannon Sommer MD Staff Physician Signed: 06/13/2024 08:35 BRANNON SOMMER [place] [facility] [place] [facility] Jun 13, 2024 08:03 AM PREVENTIVE MEDICINE NURSING NOTE: LOCAL TITLE: CLINICAL REMINDERS/NURSING STANDARD TITLE: PREVENTIVE MEDICINE NURSING NOTE DATE OF NOTE: JUN 13, 2024@08:03 ENTRY DATE: JUN 13, 2024@08:03:29 AUTHOR: DIANA SMALLS COSIGNER: URGENCY: STATUS: COMPLETED CLINICAL REMINDERS/NURSING Has ADDENDA Depression Screening: Perform PHQ-2 A PHQ-2 screen was performed. The score was 0 which is a negative screen for depression. Over the past two weeks, how often have you been bothered by the following problems? 1. Little interest or pleasure in doing things Not at all 2. Feeling down, depressed, or hopeless Not at all Tobacco Use Screening: The patient is a former cigarette smoker. The patient has never used other types of tobacco. Alcohol Use Screen (AUDIT-C): Alcohol Screen: SCREEN FOR ALCOHOL (AUDIT-C) An alcohol screening test (AUDIT-C) was negative (score=0). 1. How often did you have a drink containing alcohol in the past year? Consider a drink to be a 12 ounce can or bottle of regular beer, 8 ounces of malt liquor, a 5 ounce glass of table wine, or a 1.5 ounce shot of liquor (like scotch, gin, or vodka). Never 2. How many drinks containing alcohol did you have on a typical day when you were drinking in the past year? Response not required due to responses to other questions. 3. How often did you have six or more drinks on one occasion in the past year? Response not required due to responses to other questions. RHS Screen: RHS Screen Session Format: Face to Face Environmental Check Upon inquiry, the individual reports that the environment is safe to proceed. Informed Consent to Screen and Document The individual consents to proceed with screening. The individual consents to documentation of responses. PRIMARY SCREEN: In the past 12 months, how often did a current or former intimate partner (e.g., boyfriend, girlfriend, , , sexual partner): 1. Scream or curse at you Never 2. Insult or talk down to you Never 3. Threaten you with harm Never 4. Physically hurt you Never 5. Force or pressure you to have sexual contact against your will, or when you were unable to say no Never The HITS tool (items 1-4 above) is [place] copyright protected by Mingo Radford MD, and the user has full rights to use it throughout the [facility] system. PRIMARY SCREEN RESULT: The Primary Screen is NEGATIVE. The individual answered never to all forms of IPV above (i.e., answered never to all 5 items) The individual accepts education and/or resources: Other: n/a EDUCATION: Other: n/a Homelessness/Food Insecurity Screen: In the past 2 months, have you been living in stable housing that you own, rent, or stay in as part of a household? Yes - Living in stable housing. Are you worried or concerned that in the next 2 months you may NOT have stable housing that you own, rent, or stay in as part of a household? No - Not worried about housing near future The reports the following: Within the past 12 months, you worried whether your food would run out before you got money to buy more. Never true Within the past 12 months, the food you bought just didn't last and you didn't have money to get more. Never true Sexual Orientation: The patient thinks of their sexual orientation as: Straight or Heterosexual Influenza Immunization: Deferral / Refusal The patient declines to receive the recommended dose of seasonal influenza vaccine. Immunization: INFLUENZA, UNSPECIFIED FORMULATION Refusal Reason: PATIENT DECISION Patient refuses all immunization(s) in the FLU group Date Documented: 06/13/24 08:07 Advance Directive Screen MH AD: Patient does not have a completed advance directive on file at any facility, VA or outside. S/he is not interested in completing one at this time. The patient received education about Advance Directives and written notification of his/her rights. Comment: not at this time COVID-19 Immunization: Refused Moderna Monovalent COVID-19 vaccine Immunization: COVID-19 (MODERNA), MRNA, LNP-S, PF, 50 MCG/0.5 ML (AGES 12+ YEARS) Refusal Reason: PATIENT DECISION Patient refuses all immunization(s) in the COVID-19 group Date Documented: 06/13/24 08:08 /alexandro/ DIANA SMALLS LPN LPN Signed: 06/13/2024 08:10 06/13/2024 ADDENDUM STATUS: COMPLETED RSV Immunization: Respiratory Syncytial Virus (RSV) Vaccine: RSV vaccine administered today. Administered: RSV, BIVALENT, PROTEIN SUBUNIT RSVPREF, DILUENT RECONSTITUTED, 0.5 ML, PF Date Administered: Jun 13, 2024 08:00 Series: Complete Garden Equipment Mechanic: Flux Lot: [id number] Exp Date: Feb 01, 2025 ND: [id number] Admin Route/Site: INTRAMUSCULAR/RIGHT DELTOID Dosage: 0.5mL Vaccine Information Statement(s): RSV (RESPIRATORY SYNCYTIAL VIRUS) VACCINE VIS Apr 04, 2024 (BENGALI) Order By: Policy Administered By: Diana Smalls Comment: sterile water diluent component [id number] Vaccine Information Sheet (VIS) was given to the patient/caregiver, education regarding adverse reactions was discussed, as well as barriers to learning, if any, were acknowledged. /alexandro/ DIANA SMALLS LPN LPN Signed: 06/13/2024 09:11 [facility]
--- NOTE | 2024-10-21 12:33 | MHC.OFFVIS ---
Vital Signs 10/21/24 12:34 Height 5 ft 11 in Weight 163 lb 2.273 oz BMI 22.8 BP 120/80 Blood Pressure Location Lt brachial Position Sitting Pulse 58 Intake Visit Reasons: 1 yr f/up r/s 09-04-24 Intake Note: 1 year follow-up with ekg heart doing ok Construction Code Administrator Required: No Allergies ezetimibe (Zetia) Allergy (Unknown, Verified 09/06/21 09:22) stomach pain Bmnkeat-CLZ-SnE Reductase Inhibitor (SYSONWZ-WDQ-OTY REDUCTASE INHIBITOR) Adverse Reaction (Intermediate, Verified 09/06/21 09:22) GI PAIN finasteride Adverse Reaction (Unknown, Verified 09/06/21 09:22) decreased desire Medication List - Last Reconciled 10/21/24 by Meliton Durham MD aspirin (Adult Low Dose Aspirin) 81 mg PO DAILY bnfqphdkm-sfplaqqd-kjznkbrawn 25-100-200 mg 1 tab PO TID glycopyrrolate 1 mg PO BID-TID PRN melatonin 3 mg PO BEDTIME PRN metoprolol succinate ER 50 mg PO DAILY nitroglycerin 0.4 mg sublingual Q5M PRN oxycodone-acetaminophen 5-325 mg 1 tab PO Q8H PRN pantoprazole 40 mg PO DAILY paroxetine HCl 10 mg PO DAILY rosuvastatin 40 mg PO DAILY HPI Comments Details: Justo comes for follow-up. He not had any exertional chest discomfort. He intermittently gets chest pains which are sharp in nature and not related to exertional lasting for about 30 seconds. Takes all his medications. Has developed some balance issues, working on it. He had also developed Parkinson's disease which is under good control. Denies any prolonged palpitation irregular heartbeat. Denies any heart failure symptoms. [facility] Medical History Hyperlipidemia Atrial fibrillation CAD (coronary artery disease) Surgical History S/P CABG x 3 Social History Alcohol intake: never Patient Tobacco Use Status: Never used Tobacco Review of Systems Const Denies chills, Denies fatigue, Denies fever(s), Denies frequent falls, Denies weakness, Denies weight gain and Denies weight loss ENT Denies dizziness Card Denies chest pain, Denies leg edema, Denies lightheadedness, Denies palpitations, Denies dyspnea, Denies dyspnea on exertion, Denies orthopnea and Denies other (loss of consciousness) Resp Denies cough, Denies dyspnea and Denies dyspnea on exertion GI Denies hematochezia and Denies change in stool character Musc Denies abnormal gait, Denies muscle weakness, Denies numbness, Denies radiating pain into limb and Denies tingling Neuro Denies abnormal gait, Denies dizziness, Denies frequent falls, Denies numbness, Denies tingling and Denies weakness Endo Denies fatigue and Denies palpitations Physical Exam Vital Signs: Last Vital Signs Pulse 58 10/21/24 12:34 BP 120/80 10/21/24 12:34 BMI result Body Mass Index 22.8 Repeat blood pressure is 124/78 Const General: cooperative, comfortable, no acute distress, alert and awake Nutritional Appearance: average body habitus Orientation/consciousness: patient oriented x3 Limitations: no limitations Neck Neck: Yes trachea midline, Yes supple and Yes no JVD Resp Effort & Inspection: normal respiratory effort Auscultation: diminished lung sounds on the right (Base) Cardio Jugular venous distension: no JVD Palpation: normal PMI Rate: regular rate Rhythm: regular rhythm Heart sounds: S1 normal heart sound present and S2 normal heart sound present GI Auscultation: normal bowel sounds Skin General skin exam: no rashes or lesions noted Neuro General: patient oriented x3 and no focal motor deficits Extrem General: Yes no clubbing, cyanosis or edema Psych Appearance: grossly normal Office Procedures EKG Details: EKG shows normal sinus rhythm with T-wave changes in the anterior leads, unchanged from before 95953-Ahgnjolrptalfavxs, Complete Assessment & Plan Assessment & Plan (1) CAD (coronary artery disease): Code(s): I25.10 - Atherosclerotic heart disease of [place] coronary artery without angina pectoris Category: Medical Plan: CAD with remote coronary artery bypass grafting without any new symptoms that are suggestive of angina. His myocardial perfusion imaging with the last 3 years has been within normal limits. No further workup is indicated at this point time. Encouraged to maintain activity level as tolerated. Advise low-dose aspirin therapy. Continue high-intensity statin therapy with target goal LDL less than 70 mg/dL. Advised lipid panel, he says he is going to pursue through your office. Continue metoprolol therapy. Advised to call me with any new symptoms. Will follow up in the clinic in 1 year's time, sooner p.r.n.. Thank you for allowing me to partake in his care Coding Level of Care Code Est Pt Level 4 (64855) Complex EM visit Add On G2211 Diagnoses CAD (coronary artery disease) I25.10 CPT Codes EKG - CPT: 94686-Uxcnourehqdaeksas, Complete ([id number])
[2024-10-21 12:34] VITALS: BP 120/80; PULSE 58; BMI 22.8
--- OUTSIDE RECORDS SUMMARY | 2024-10-21 13:36 | XMS_ITS | Patient Health Record ---
[facility] Address [address] [place] [address] Care Team Providers Care J2Ee Programmer Name Role Phone Juan José Fernandez MD Primary Care Provider Davis Hammer Unavailable [phone] Allergies Allergen (clinical drug ingredient) Drug/Non Drug Allergy documented on EMR Reaction Allergy Type Onset Date Status Substance with 2-rxwwaqu-8-methylglu taryl-coenzyme A reductase inhibitor mechanism of action (substance) statins (uncoded) upset stomach Allergy Active naproxen Naproxen black stool Drug Allergy Activ e Reason For Referral No Information Medications Medication SIG (Take, Route, Frequency, Duration) Notes Start Date End Date Status Ambien PRN Active Rosuvastatin Calcium 20 MG 1 tablet Oral ly Once a day; Duration: 30 day(s) Active Pantoprazole Sodium 20 MG 1 tablet Orall y Once a day; Duration: 30 day(s) Active Walking Boot/Pneumatic As directed Wear Daily; Duration: Until further notice 12/10/2018 Active Triple Flex Active Finasteride 5 MG 1 tablet Orally Once a day; Duration: 30 day(s) Active Aspir-81 Active oxyCODONE HCl PRN Active Metoprolol Succinate 50 MG 1 capsule Ora lly Once a day; Duration: 30 day(s) Active Social History Tobacco Use: Social History Observation Description Date Details (start date - stop date) Former Smoker NA - NA Tobacco Use/Smoking Question Answer Notes Are you a: former smoker When did you stop smoking? 30 yrs ago Additional Findings: Tobacco Non-User Current no n-smoker Alcohol Screen Question Answer Notes Did you have a drink containing alcohol in the p ast year? No Points 0 Interpretation Negative Tobacco use other than smoking: Question Answer Notes Are you an other tobacco user? No Problems Problem Type SNOMED Code ICD Code Onset Dates Problem Status W/U Status Risk Notes Problem Primary osteoarthriti s, right ankle and foot (M19.071) Active confirmed Problem Acquired hammer toe of right foot (6163058745346 105) Other hammer toe(s) (acquired), right foot (M20.41) Active confirmed Plan Of Treatment Pending Test Test Name Order Date X ray : Foot, right 3V 11/19/2018 X ray : Foot, right 3V 12/10/2018 X ray : Foot, right 3V 12/24/2018 X ray : Foot, right 3V 01/14/2019 X ray : Foot, right 3V 05/06/2019 Insurance Providers Payer Name Payer Address Payer Phone Subscriber Number Group Number Insured Name Patient Relationship to Insured Coverage Start Date Coverage End Date [facility] Others [address] [place] [address] [id number] Justo Pond Self - patient is the insured Medical (General) History Medical History History ICD Code Arthritis Heart disease Back,Hip,and Knee pain Paralysis Surgical History Surgery Date(Month/Year) rotator cuff 12/16/12 triple bypass 12/16/13 joint fusion 12/22/15 HT R4th, Excision of skin R 12/05/2018 Hospitalization History Reason Date(Month/Year) [facility] HT R 12/05/18
--- OUTSIDE RECORDS SUMMARY | 2024-10-21 13:36 | XMS_ITS | Patient Health Record ---
Author Organization [facility] Address [address] [place] [address] Care Team Providers Care Chief Wheelage Clerk Name Role Phone Juan José Fernandez MD Primary Care Provider Abimael Novak Jr Unavailable Allergies Allergen (clinical drug ingredient) Drug/Non Drug Allergy documented on EMR Reaction Allergy Type Onset Date Status Substance with 6-kpxzhus-6-methylgluta ryl-coenzyme A reductase inhibitor mechanism of action (substance) statins (uncoded) Unknown Allergy Active Reason For Referral No Information Medications Medication SIG (Take, Route, Frequency, Duration) Notes Start Date End Date Status Triple Flex Orally 07/31/2013 Not-Yunior ing Ambien CR 12.5 MG TAKE 1 BY MOUTH TABL ET AT BEDTIME Oral for 30 Active Aspir-81 81 MG 1 tablet Orally Once a day 07/31/2013 Active Glucosamine 500 MG 1 capsule with a isaias l Orally Once a day Active Krill Oil Orally 07/31/2013 Active oxyCODONE-Acetaminophen 5-325 MG TAKE 2 TABLETS BY MOUTH 3 TIMES A DAY NEEDED FOR PAIN Oral for 17 Not-Taking Omeprazole 20 MG TAKE ONE CAPSULE BY MOUTH TWICE A DAY Oral for 30 Not-Taking Social History Tobacco Use: Social History Observation Description Date Details (start date - stop date) Never Smoker NA - NA Tobacco Use/Smoking Question Answer Notes Patient is a nonsmoker Alcohol Screen Question Answer Notes Did you have a drink containing alcohol in the p ast year? No Points 0 Interpretation Negative Problems Problem Type SNOMED Code ICD Code Onset Dates Problem Status W/U Status Risk Notes Problem [id number] Esophageal reflux (530.81) Active confirmed Plan Of Treatment No Information Insurance Providers Payer Name Payer Address Payer Phone Subscriber Number Group Number Insured Name Patient Relationship to Insured Coverage Start Date Coverage End Date [facility] [address] [place], [place] [id number] [phone] [id number] ELLEN THOMAS Self - patient is the insured Medical (General) History Medical History History ICD Code insomnia back pain Surgical History Surgery Date(Month/Year) appendectomy shoulder surgery
--- OUTSIDE RECORDS SUMMARY | 2024-10-21 13:36 | XMS_ITS | Encounter Summary ---
Author Organization [facility] Address [address] [place] [address] [place] [address] Phone Care Team Providers Care Line Construction Superintendent Name Role Phone Juan José Fernandez MD Primary Care Provider [phone] Juan José Fernandez MD Unavailable [phone] Darell Kingsley MD Unavailable [phone] Fabby Martinez NP Unavailable Jacques Pereyra MD Unavailable Meliton Durham MD Unavailable Pcp, Unknown Primary Care Provider Unavailabl e Encounter Details Date Type Department Care Team (Late st Contact Info) Description 01/11/2017 Transcribe Orders [facility] [address] [place], [place] [id number] Juan José Fernandez MD [address] [place], [place] [id number] [email or web address] Social History Tobacco Use Types Packs/Day Years Used Date Smoking Tobacco: Former Cigarettes Q uit: 1985 Smokeless Tobacco: Never Alcohol Use Standard Drinks/Week Comments No 0 (1 standard drink = 0.6 oz pur e alcohol) Sex and Gender Information Value Date Recorded Sex Assigned at Not on file Legal Sex Male 10:04 PM EDT Gender Identity Not on file Sexual Orientation Not on file documented as of this encounter Plan of Treatment Not on file documented as of this encounter Visit Diagnoses Not on filedocumented in this encounter Additional Health Concerns Assessment Noted Time PHQ-2 Depression Total Score: 0 01/12/20 17 9:12 AM EST documented as of this encounter Care Teams Line Construction Superintendent Relationship Specialty Start Date End Date Juan José Fernandez MD [address] [place] [address] PCP - General 12/18/16 04/21/24 Pcp, Unknown PCP - General 04/22/24 Juan José Fernandez MD [address] [place] [address] Historical LMR Provider 12/24/16 01/15/19 Darell Kingsley MD [address] [facility], [address] [place] [id number] Historical LMR Provider 12/24/16 Fabby Dial NP [address] [place] [address] Historical LMR Provider 12/24/1601/15 Jacques Pereyra MD [address] [place] [phone] Rheumatology 11/21/19 Meliton Durham MD [address] [place] [id number] Cardiology 10/18/21 documented as of this encounter Additional Source Comments The information contained in this document represents components of the legal health record. It is not the complete legal health record.[facility]
== END 2024-10-21 12:56 | disposition home or self-care (01) ==
PROVIDERS: PCP Internal Medicine; Visit Provider Internal Medicine Cardiovascular Disease
DX: I25.10 Atherosclerotic heart disease of native coronary artery without angina pectoris (principal)
CPT/HCPCS: 93010; 99214; G2211

== ENCOUNTER → 2024-10-21 12:18 | Outpatient (BNVA) | payer MEDICARE, SELFPAY | PROVIDERS: PCP Internal Medicine; Visit Provider Internal Medicine Cardiovascular Disease | DX: I25.10 Atherosclerotic heart disease of native coronary artery without angina pectoris (principal); R00.1 Bradycardia, unspecified; R94.31 Abnormal electrocardiogram [ECG] [EKG] | CPT/HCPCS: 93005; 99212 ==